=== PATIENT | male | born 1990 | race Caucasian/White ===

== ENCOUNTER 2019-07-11 15:38 | Observation (INO) | payer OTHER ==
--- NOTE | 2019-07-11 15:45 | ER Document Report ---
ED Medical Screen (RME) - General Chief Complaint: Post Surgical Pain Stated Complaint: POST SURGICAL PAIN Time Seen by Provider: 07/11/19 15:39 Mode of Arrival: Ambulatory Information source: Patient Notes: 29-year-old male presented to ED for complaint of pain and swelling to his thyroid area. He states he went into surgery this morning at 730 at [facility] to have a thyroidectomy he left [place] about 330 3:00. He states his neck has gotten progressively more swollen and more painful. He states he is having some trouble breathing swallowing but is talking in full sentences. He is alert oriented respirations regular nonlabored speaking in full sentences at this time. I have greeted and performed a rapid initial assessment of this patient. A comprehensive ED assessment and evaluation of the patient, analysis of test results and completion of medical decision making process will be conducted by an additional ED providers.
[2019-07-11] MEDS ORDERED: FENTANYL CITRATE INJ/PF 100 MCG/2 ML AMPUL ONE (16:10)
[2019-07-11] MEDS ORDERED: FENTANYL CITRATE INJ/PF 250 MCG/5 ML AMPULE ONE (16:10)
[2019-07-11] MEDS ORDERED: ONDANSETRON HCL INJ/PF 4 MG/2 ML SDV ONE (16:11)
[2019-07-11] MEDS ORDERED: DEXAMETHASONE SOD PHOSPHATE INJ 4 MG/1 ML VIAL ONE (16:11)
[2019-07-11] MEDS ORDERED: PROPOFOL INJ 200 MG/20 ML VIAL IV ONE (16:11)
[2019-07-11] MEDS ORDERED: MIDAZOLAM 2 MG/2 ML INJ ONE (16:11)
[2019-07-11] MEDS ORDERED: CEFAZOLIN INJ 1 GM VIAL ONE (16:36)
[2019-07-11] MEDS ORDERED: MORPHINE SULFATE 10 MG/ML INJ IV PRN ×2 (16:57→18:16)
[2019-07-11] MEDS ORDERED: FENTANYL CITRATE INJ/PF 100 MCG/2 ML AMPUL IV PRN ×3 (16:57)
[2019-07-11] MEDS ORDERED: MEPERIDINE HCL/PF INJ 25 MG/1 ML DISP.SYRIN IV PRN (16:57)
[2019-07-11] MEDS ORDERED: DIPHENHYDRAMINE HCL 50 MG/ML VIAL IV PRN (16:57)
[2019-07-11] MEDS ORDERED: PROMETHAZINE HCL INJ 25 MG/1 ML VIAL IV PRN ×2 (16:57)
[2019-07-11] MEDS ORDERED: OXYCODONE-ACETAMINOPHEN 5-325 MG TABLET PO PRN ×2 (16:57)
[2019-07-11] MEDS ORDERED: ONDANSETRON HCL INJ/PF 4 MG/2 ML SDV IV PRN (18:16)
[2019-07-11] MEDS ORDERED: HYDROCODONE/ACETAMINOPHEN 10-325 MG TABLET PO PRN (18:18)
--- NOTE | 2019-07-11 18:53 | Operative Report ---
Nonrecallable Operative Report DATE OF SURGERY: 07/11/19 PREOPERATIVE DIAGNOSIS: 1. Anterior neck swelling consistent with postoperative hematoma. #2 emergency airway compromise. POSTOPERATIVE DIAGNOSIS: Same as above OPERATION: 1. Emergency evacuation of anterior neck hematoma. 2. Ligation of bleeding vessel in the area of the anterior jugular vein. 3. Operative exploration of the neck. SURGEON: HALINA FUCHS ANESTHESIA: GA TISSUE REMOVED OR ALTERED: Hematoma COMPLICATIONS: none apparent ESTIMATED BLOOD LOSS: large amount of hematoma PROCEDURE: Drains/implants: 10 Kisw[place]ili round Dawit drain. Procedure in detail: After informed consent was obtained, the patient was expertly intubated by anesthesia professionals. The anterior neck was quickly prepped and draped in sterile fashion. The anterior neck was then opened through the previous incision with a 15 blade scalpel. The platysma was opened similarly. The midline strap muscles were already dehisced, and there was a large hematoma within the soft tissues of the anterior neck. This hematoma was evacuated. The neck was packed with gauze. The neck was then serially examined. An area of active bleeding was found in the anterior neck, in the area of the anterior jugular vein. This was ligated x2 with 3-0 Vicryl suture. No further bleeding could be identified. The left neck was then packed with Surgicel. The neck was found to be completely hemostatic. A 10 Kisw[place]ili round Dawit drain was placed through a separate stab incision, and laid in the left neck. The drain was sutured to the anterior neck using 3-0 nylon suture. The midline strap muscles were reapproximated using 3-0 Vicryl suture in simple running fashion. The platysma was then reapproximated using 3-0 Vicryl in simple interrupted fashion. The overlying skin was closed using 4-0 Vicryl Rapide in running subcuticular fashion. A dressing was placed, and the proce dure was concluded. All sponge, instrument, and needle counts were correct x2.. Condition: Stable.
--- NOTE | 2019-07-11 19:10 | PDOC H&P ---
History of Present Illness Patient complains of: neck swelling after thyroidectomy, change in voice, difficulty breathing History of Present Illness: RYANN KAUFFMAN is a 29 year old male who this morning had a left-sided thyroidectomy at [facility]. The patient initially did very well. He was traveling home today, and felt swelling in his neck. The swelling progressed to the point where he began having difficulty breathing. Upon my evaluation he complains of difficulty swallowing, difficulty breathing, swelling in the anterior neck and a change in his voice. The patient denies headache, chest pain, shortness of breath, fevers, chills. Symptoms mainly revolve around his surgical site, and the life-threatening swelling that is occurring. The patient is being taken immediately/emergently to the operating room for hematoma evacuation. Past Medical History EENT Medical History: Reports: Other - thyroid disease Past Surgical History Past Surgical History: Reports: Thyroidectomy Social History Smoking Status: Never Smoker Electronic Cigarette use?: No Family History Family History: Reviewed & Not Pertinent Parental Family History Reviewed: Yes Children Family History Reviewed: Yes Sibling(s) Family History Reviewed.: Yes Medication/Allergy Allergies/Adverse Reactions: No Known Allergies Allergy (Unverified 07/11/19 15:45) Review of Systems Constitutional: ABSENT: anorexia, chills, fatigue, fever(s), headache(s) Eyes: ABSENT: visual disturbances Ears: ABSENT: hearing changes Nose, Mouth, and Throat: PRESENT: sore throat, other - neck swelling, change in voice Cardiovascular: ABSENT: chest pain Respiratory: PRESENT: dyspnea Gastrointestinal: ABSENT: abdominal pain, hematemesis, hematochezia, melena, nausea, vomiting Genitourinary: ABSENT: dysuria Musculoskeletal: ABSENT: back pain Integumentary: PRESENT: other - expanding hematoma at neck incision. ABSENT: pruritus Neurological: ABSENT: confusion, convulsions, dizziness Psychiatric: ABSENT: anxiety, depression Endocrine: ABSENT: cold intolerance, heat intolerance Hematologic/Lymphatic: ABSENT: easy bleeding, easy bruising Physical Exam Vital Signs: Temp Pulse Resp BP Pulse Ox 97.4 F 88 19 131/111 H 100 07/11/19 15:43 07/11/19 15:43 07/11/19 16:01 07/11/19 16:01 07/11/19 16:01 Intake & Output 07/10/19 07/11/19 07/12/19 06:59 06:59 06:59 Intake Total 800 Output Total 875 Balance -75 Weight 60.6 kg General appearance: PRESENT: cooperative. ABSENT: disheveled Head exam: PRESENT: atraumatic, normocephalic Eye exam: PRESENT: EOMI, PERRLA. ABSENT: scleral icterus Mouth exam: PRESENT: moist Throat exam: PRESENT: other - Vocal change due to hematoma Neck exam: PRESENT: other - Large anterior neck hematoma beneath his surgical incision. Respiratory exam: PRESENT: other - Mild upper airway noise consistent with expanding hematoma of the neck. Obvious difficulty breathing due to expanding hematoma. Cardiovascular exam: ABSENT: tachycardia GI/Abdominal exam: PRESENT: soft. ABSENT: distended, tenderness Rectal exam: PRESENT: deferred Extremities exam: ABSENT: clubbing Musculoskeletal exam: ABSENT: deformity Neurological exam: PRESENT: alert, awake, oriented to person, oriented to place, oriented to time, oriented to situation Psychiatric exam: ABSENT: agitated, anxious, depressed Focused psych exam: ABSENT: delusional Skin exam: ABSENT: cyanosis, jaundice Assessment & Plan - Diagnosis (1) Hematoma of neck Qualifiers: Encounter type: initial encounter Qualified Code(s): S10.93XA - Contusion of unspecified part of neck, initial encounter Is this a current diagnosis for this admission?: Yes (2) Airway compromise Is this a current diagnosis for this admission?: Yes - Plan Summary Plan Summary: This a 29-year-old male status post left thyroidectomy in [facility] this morning. The patient was traveling home and developed an expanding hematoma of the anterior neck. He has airway compromise, vocal changes, and a large/obvious hematoma of the anterior neck. I recommended emergent intubation with hematoma evacuation to protect his airway. This has been discussed with the patient and his significant other. They were in agreement with the treatment plan. Risks/benefits were discussed. Surgical and anesthesia consent was obtained from the patient and his significant other. All questions were answered.
[2019-07-12] MEDS ORDERED: LEVOTHYROXINE SODIUM 0.1 MG TABLET PO SCH (06:00)
--- NOTE | 2019-07-12 06:50 | PDOC DISCHARGE SUMMARY ---
General - Admit/Disc Date/PCP Admission Date/Primary Care Provider: 07/11/19 18:37 Discharge Date: 07/12/19 - Discharge Diagnosis Final Diagnosis: neck hematoma, airway compromise - Assessment Summary: This is a 29-year-old male who is recently status post left-sided thyroidectomy at [facility]. On his way home, the patient noticed swelling in the anterior neck, consistent with a postoperative expanding neck hematoma. He began having difficulty swallowing and breathing. He presented to our hospital for care. Patient was taken emergently to the operating room, intubated, and his neck incision was opened. A large hematoma was identified with active bleeding. The bleeding was stopped, Surgicel was left in place, and a drain was inserted. On postoperative day #1, the patient reports no significant symptom, except for postoperative pain. His drain is minimally productive. He is able to swallow and breathe normally. At this time, I believe he has reached maximal hospital benefit. He is medically fit for discharge. - Additional Information Resuscitation Status: Full Code Discharge Diet: As Tolerated Discharge Activity: Balance Activity w/Rest Home Medications: Calcium Carbonate [Os-Ajay 500 mg Tablet (Oyster-Shell)] 500 mg PO TID 07/11/19 Levothyroxine Sodium [Synthroid 0.1 mg Tablet] 0.1 mg PO Q6AM 07/11/19 Oxycodone HCl [Oxy-Ir 5 mg Tablet] 5 mg PO Q4HP PRN 07/11/19 Promethazine HCl [Phenergan 25 mg Tablet] 12.5 mg PO Q4HP PRN 07/11/19 Additional Information: Discharge home. Diet as tolerated. Activity: Nonstrenuous. Follow-up with your surgeon in [facility]. Please call my office with any questions or concerns. Otherwise, he is free to follow-up with me as needed. History of Present Illiness History of Present Illness: RYANN KAUFFMAN is a 29 year old male who this morning had a left-sided thyroidectomy at [facility]. The patient initially did very well. He was traveling home today, and felt swelling in his neck. The swelling progressed to the point where he began having difficulty breathing. Upon my evaluation he complains of difficulty swallowing, difficulty breathing, swelling in the anterior neck and a change in his voice. The patient denies headache, chest pain, shortness of breath, fevers, chills. Symptoms mainly revolve around his surgical site, and the life-threatening swelling that is occurring. The patient is being taken immediately/emergently to the operating room for hematoma evacuation. Physical Exam Vital Signs: Temp Pulse Resp BP Pulse Ox 97.5 F 56 L 17 106/63 98 07/12/19 05:17 07/12/19 05:17 07/12/19 05:17 07/12/19 05:17 07/12/19 05:17 Intake & Output 07/10/19 07/11/19 07/12/19 06:59 06:59 06:59 Intake Total 1580 Output Total 2735 Balance -1155 Weight 60.2 kg
[2019-07-12 08:08] VITALS: BP 129/76
== END 2019-07-12 08:48 | disposition home or self-care (01) ==
LOC: ER 15:38 → 4S 18:37
PROVIDERS: ATTEND Surgery
DX: I97.621 Postprocedural hematoma of a circulatory system organ or structure following other procedure (principal); Y83.8 Other surgical procedures as the cause of abnormal reaction of the patient, or of later complication, without mention of misadventure at the time of the procedure; J98.8 Other specified respiratory disorders; Z79.899 Other long term (current) drug therapy
CPT/HCPCS: 21501; 99283; 00300; G0378 ×3; J2250; J0690; J1100; J3010 ×2; J2405; J2704; 300